=== PATIENT | male | born 1955 | race Caucasian/White ===

== ENCOUNTER 2018-05-29 14:31 | Emergency (ER) | payer BC ==
--- NOTE | 2018-05-29 15:19 | ED Physician Chart ---
ED Chief Complaint/HPI - Patient Information Date Seen:: 05/29/18 Time Seen:: 15:00 Chief Complaint:: tired Allergies:: Allergies Allergy/AdvReac Type Severity Reaction Status Date / Time No Known Allergies Allergy Verified 05/29/18 14:50 Vitals:: Vital Signs - 8 hr 05/29/18 14:51 Temp 98.2 F HR 78 RR 16 BP 138/90 O2 Sat % 100 Historian:: Patient Review:: Nurse's Note Reviewed ED Review of Systems - Review of Systems General/Constitutional: No fever Skin: No skin lesions Head: No headache Eyes: No loss of vision ENT: No earache Neck: No neck pain Cardio Vascular: No chest pain, Palpitations, No PND, orthopnea, No edema Pulmonary: SOB, No wheezing GI: No nausea, No vomiting G/U: No hematuria Musculoskeletal: Back pain Psychiatric: No suicidal ideation Hematopoietic: No bruising Allergic/Immuno: No urticaria Neurological: No syncope ED Past Medical History - Past Medical History Past Medical History: HTN, CAD Social History: No Drug Use Surgical History: other (defibrillator) Medication: Reviewed Family Medical History - Family Member Father Living Status: Still Living Other Medical History: stroke ED Physical Exam - Physical Examination General/Constitutional: Alert, No distress, Non-toxic appearing Head: Atraumatic Eyes: Lids, conjuctiva normal Skin: Nl inspection ENMT: External ears, nose nl Neck: Nontender Respiratory: Nl effort/Exclusion Cardio Vascular: RRR, No murmur, gallop, rubs, NL S1 S2 GI: No tenderness/rebounding/guarding : No CVA tenderness Extremities: No tenderness or effusion, Full ROM, No edema Neuro/Psych: Alert/oriented, Normal motor strength, No focal deficits ED Septic Shock - <6hrs of presentation: Vital Signs: Vital Signs - 8 hr 05/29/18 14:51 Temp 98.2 F HR 78 RR 16 BP 138/90 O2 Sat % 100
[2018-05-29 15:37] LABS: % BASOPHILS 0.8 % (0.0-2.0); % EOSINOPHILS 2.1 % (0.0-5.0); % LYMPHOCYTES 44.8 % (20.0-50.0); % MONOCYTES 7.4 % (2.0-10.0); % NEUTROPHILS 44.9 % (40.0-80.0); BASOPHILE ABSOLUTE 0.1 Th/cumm (0-0.2); EOSINOPHILE ABSOLUTE 0.2 Th/cmm (0.1-0.4); HEMATOCRIT 47.8 % (41.0-60); HEMOGLOBIN 16.1 gm/dL (12-16); LYMPHOCYTE ABSOLUTE 4.6 Th/cmm (1.5-3.0); MEAN CELL VOLUME 89.2 fl (80-99); MEAN CORPUSCULAR HGB CONC 33.6 pg (28.0-36.0); MEAN PLATELET VOLUME 7.9 fl; MONOCYTE ABSOLUTE 0.8 Th/cmm (0.3-1.0); NEUTROPHILE ABSOLUTE 4.6 Th/cmm (1.8-8.0); PLATELET COUNT 265 Th/cmm (150-400); RED BLOOD COUNT 5.36 Mil/cmm (4.30-5.70); RED CELL DISTRIBUTION WIDTH 12.9 % (11.5-20.0); WHITE BLOOD COUNT 10.3 Th/cmm (4.8-10.8)
[2018-05-29 15:57] LABS: ANION GAP 9.7 (7.0-16.0); BUN - UREA NITROGEN 14 mg/dL (7-25); CALCIUM SERUM 9.3 mg/dL (8.6-10.3); CARBON DIOXIDE 25.6 mEq/L (21.0-31.0); CHLORIDE 104 mEq/L (98-107); GFR AFRICAN-AMERICAN > 60.0 ml/min (>90); GFR NON AFRICAN-AMERICAN > 60.0 ml/min; GLUCOSE 116 mg/dL (70-105); POTASSIUM SERUM 3.3 mEq/L (3.5-5.1); SODIUM SERUM 136 mEq/L (136-145)
[2018-05-29] MEDS ORDERED: Potassium Chloride 20 mEq ER Tab PO ONE ×4 (16:36→16:57)
--- NOTE | 2018-05-30 10:11 | Diagnostic Imaging Report ---
CHEST X-RAY: AP view INDICATION: CHF COMPARISON: None FINDINGS: Left chest wall AICD apparatus is noted with these region of the right atrium and right ventricle. Chronic lung changes are seen with no focal consolidation or effusions. Heart size is normal. Degenerative changes of the spine are noted. IMPRESSION: No focal consolidation or evidence of rachel CHF. AICD noted.
== END 2018-05-29 16:55 | disposition home or self-care (01) ==
LOC: ER 14:31
DX: R53.83 Other fatigue (principal); I10 Essential (primary) hypertension; I25.10 Atherosclerotic heart disease of native coronary artery without angina pectoris
CPT/HCPCS: 36415-UA; 71045-TC; 80048-TC; 83880-TC; 84443-TC; 84484-TC; 85025-TC; 93005